=== PATIENT | male | born 1965 | race Caucasian/White ===

== ENCOUNTER 2019-06-04 21:20 | Emergency (ER) | payer MEDICAID ==
[~2019-06-04] VITALS: Ht 182.9 cm; Wt 59.0 kg
--- NOTE | 2019-06-04 21:24 | PHYS DOC ---
Past History Past Medical History: COPD Adult General Chief Complaint Chief Complaint: ".. The whole family been sick since .. they all got over it... I did't... I am so short of breath.. I quit smoking yesterday... " HPI HPI Patient is a 54 year old male who presents with above hx and complaints congestion, drainage, coughing, dyspnea, malaise, and arthralgia. Patient advised the entire family have had upper respiratory infections since however everyone else's well except him. Patient has continued to be short of breath and becomes dyspneic easily. Patient has been coughing and so short of breath he has not been able to smoke in the last 48 hours. Patient does have significant history of non-Hodgkin's lymphoma in 2006 underwent chemotherapy and radiation. Patient however did not do yearly follow-ups. Patient has had no recent travel. No history immunosuppression. No history of IV drug use. Patient does smoke tobacco and marijuana. Patient did not receive a flu vaccination this year. Pt. in past followed with Dr. Vicente, and also Dr. Mustafa. Review of Systems Review of Systems Constitutional: Complaints of fever or chills [] Eyes: Denies change in visual acuity, redness, or eye pain [] HENT: Complains of nasal congestion Respiratory: Complaints of cough and shortness of breath [] Cardiovascular: No additional information not addressed in HPI [] GI: Denies abdominal pain, nausea, vomiting, bloody stools or diarrhea [] : Denies dysuria or hematuria [] Musculoskeletal: Denies back pain or joint pain [] Integument: Denies rash or skin lesions [] Neurologic: Denies headache, focal weakness or sensory changes [] Endocrine: Denies polyuria or polydipsia [] All other systems were reviewed and found to be within normal limits, except as documented in this note. Family History Family History FAMILY members have had upper respiratory complaints since - most the family [place] members have recovered Current Medications Current Medications See nursing for home meds Allergies Allergies No known drug allergies Physical Exam Physical Exam Constitutional: in moderately acute distress, non-toxic appearance. [] HENT: Normocephalic, atraumatic, bilateral external ears normal, oropharynx moist, no oral exudates, nose swollen turbinates and clear rhinorrhea Eyes: PERRLA, EOMI, conjunctiva normal, no discharge. [] Neck: Normal range of motion, no tenderness, supple, no stridor. [] Cardiovascular:Heart rate regular rhythm, no murmur [] Lungs & Thorax: Bilateral breath sounds equal at apex with scattered wheezing throughout on auscultation . The patient []does have rhonchi in left lung mathews. Abdomen: Bowel sounds normal, soft, no tenderness, no masses, no pulsatile masses. [] Skin: Warm, dry, no erythema, no rash. [] Back: No tenderness, no CVA tenderness. [] Extremities: No tenderness, no cyanosis, no clubbing, ROM intact, no edema. [] No cording appreciated Neurologic: Alert and oriented X 3, normal motor function, normal sensory function, no focal deficits noted. [] Psychologic: Affect anxious, judgement normal, mood normal. [] EKG EKG My interpretation EKG shows a sinus rhythm at 82 bpm. No findings acute STEMI with contralateral changes.[] Radiology/Procedures Radiology/Procedures [[place] [address] IMAGING REPORT Signed PATIENT: ROGER WEBBER ACCOUNT: [id number] : 1965 LOCATION: ER AGE: 54 SEX: M EXAM STATUS: REG ER ORD. PHYSICIAN: BEA LOPEZ MD REASON: cough short of breath- hx Hodgkin's lymphoma, H/O SMOKING PROCEDURE: CHEST PA & LATERAL EXAM: PA and Lateral Views of the Chest DATE: 06/04/2019 9:29 PM INDICATION: Cough, shortness of breath, history of Hodgkin's lymphoma COMPARISON: No Prior FINDINGS: The heart is not enlarged. Mediastinal and hilar contours are stable. Linear/fibrotic changes in the left suprahilar lung. Left apical pleural/painful scarring/thickening. Emphysematous changes are seen. No pleural effusion or pneumothorax. IMPRESSION: Linear/fibrotic changes in the left suprahilar lung. Left apical pleural/painful scarring/thickening. Emphysematous changes are seen. No lobar consolidation. Electronically signed by: Carmelo Zavala MD (06/04/2019 10:52 PM) [facility] [place] DICTATED AND SIGNED BY: CARMELO ZAVALA MD DATE: 06/04/192251 CC: ELIESER VICENTE MD; BEA LOPEZ MD ~ ][place] [address] IMAGING REPORT Signed PATIENT: ROGER WEBBER ACCOUNT: [id number] : 1965 LOCATION: ER AGE: 54 SEX: M EXAM STATUS: REG ER ORD. PHYSICIAN: BEA LOPEZ MD REASON: dyspnea, COUGH, CONGESTION, NON HODGKINS LYMPHOMA, OMNI 350, 90ml PROCEDURE: CT ANGIOGRAPHY CHEST CT angiography chest with contrast PQRS statement: CT scans at this facility use dose reduction including either automated exposure control, iterative reconstructions, and /or weight based radiation dosing via mA and kV modification when appropriate to reduce radiation dose to as low as reasonably achievable. HISTORY: Dyspnea, cough, congestion for one week. Non-Hodgkin's lymphoma. TECHNIQUE: CT imaging of the chest with 3-D MIP reconstructions of the pulmonary arteries with 90 mL Omnipaque 300 intravenous contrast. FINDINGS: 1.3 cm left renal upper pole cyst density of 3 units. Heart size normal. Thoracic aorta and esophagus are unremarkable. No pulmonary artery emboli. Subcentimeter mediastinal and hilar lymph nodes no enlarged adenopathy by size criteria. Paraseptal and centrilobular pulmonary emphysema. Bronchial wall thickening may be bronchitis. Bullous changes at the left upper lobe. There is a thick walled cavitation at the lateral left upper lobe measuring 8 cm craniocaudal and 4 x 3 cm transaxial with areas of wall thickness of up to 1.3 cm. There are areas of nodularity peripheral of this cavitation measuring up to 1.5 cm on image 41. Along the inferior aspect of this cavitation there is a oblong 4 x 1 cm nodular density extending towards the pleura. No pleural effusions. Extensive areas of heterogeneous bony sclerosis throughout the thoracic spine and upper lumbar spine. Bony sclerosis right anterior first rib. IMPRESSION: 1. No pulmonary artery emboli. 2. Left upper lobe 8 x 4 x 3 cm thick walled cavitation with wall thickness of up to 1.3 cm, and numerous satellite nodules largest of which measures 4.1 cm. This raises concern for a cavitary lung malignancy with satellite lesions. 3. Pulmonary emphysema. 4. Bronchial wall thickening may be bronchitis. 5. Extensive areas of bony sclerosis throughout the thoracic and lumbar spine as well as the right first rib raising concern for osteoblastic metastatic disease. Osseous lymphoma would also be a consideration given history of non-Hodgkin's lymphoma. Electronically signed by: Caridad Godoy MD (06/04/2019 11:53 PM) [facility] DICTATED AND SIGNED BY: CARIDAD GODOY MD DATE: 06/04/19 2235 CC: ELIESER VICENTE MD; BEA LOPEZ MD ~ Course & Med Decision Making Course & Med Decision Making Pertinent Labs and Imaging studies reviewed. (See chart for details) Discussed presentation, testing and treatment plan with Dr. Jones , will transfer to [facility] under his care. Plan consults with Oncology and Pulmonary. Impression: 1. COPD / Emphysema exacerbation 2. Lt. Upper Lung Cavitation- Abscess vs Lung Malignancy 3. Hx. of Non-Hodgkins Lymphoma 3. Elevated Lactic Acid 2.3 4. Elevated D-dimer 12.38 5. Hx. Tobacco and Marijuana use. [] Dragon Disclaimer Dragon Disclaimer This electronic medical record was generated, in whole or in part, using a voice recognition dictation system. Departure Departure: Disposition: 01 HOME/RESIDENCE PRIOR TO ADM Condition: STABLE Dragon Disclaimer This chart was dictated in whole or in part using Voice Recognition software in a busy, high-work load, and often noisy Emergency Department environment. It may contain unintended and wholly unrecognized errors or omissions. BEA LOPEZ MD Jun 04, 2019 21:24
[2019-06-04] MEDS ORDERED: AZITHROMYCIN 250 MG TABLET. PO ONE (22:00)
[2019-06-04] MEDS ORDERED: methylPREDNISolone SOD SUCC PF 125 MG/2 ML VIAL. IV ONE (22:00)
[2019-06-04] MEDS ORDERED: IV RINGERS SOLUTION,LACTATED 1,000 ML IV SCH (22:00)
[2019-06-04] MEDS ORDERED: ASPIRIN 81 MG TAB.CHEW PO ONE (22:00)
[2019-06-04] MEDS ORDERED: IV NORMAL SALINE 50ML 50 ML ONE (22:03)
[2019-06-04] MEDS ORDERED: cefTRIAXone SODIUM 1 GM VIAL ONE (22:03)
[2019-06-04 22:09] LABS: BASO % 0 % (0-3); EOS # 0.1 x10^3/uL (0.0-0.7); EOS % 1 % (0-3); HEMATOCRIT 43.4 % (39.0-53.0); HEMOGLOBIN 14.2 g/dL (13.0-17.5); LYMPH # 2.7 x10^3/uL (1.0-4.8); LYMPH % 39 % (24-48); MEAN CORPUSCULAR HEMOGLOBIN 29 pg (25-35); MEAN CORPUSCULAR HGB CONC 33 g/dL (31-37); MEAN CORPUSCULAR VOLUME 88 fL (79-100); MONO # 0.7 x10^3/uL (0.0-1.1); MONO % 9 % (0-9); NEUT # 3.6 x10^3uL (1.8-7.7); NEUT % 51 % (31-73); PLATELET COUNT 291 x10^3/uL (140-400); RED BLOOD COUNT 4.92 x10^6/uL (4.30-5.70); RED CELL DISTRIBUTION WIDTH 13.9 % (11.5-14.5)
--- NOTE | 2019-06-04 22:25 | EKG ---
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
[2019-06-04 22:26] LABS: CALCIUM 8.7 mg/dL (8.5-10.1); CREATININE 0.7 mg/dL (0.7-1.3)
[2019-06-04] MEDS ORDERED: LORazepam 1 MG TABLET ONE (22:34)
[2019-06-04] MEDS ORDERED: DIVALPROEX SODIUM 125 MG TABLET.DR. PO ONE (22:34)
[2019-06-04 22:36] LABS: INFLUENZA A PATIENT NEGATIVE (NEGATIVE); INFLUENZA B PATIENT NEGATIVE (NEGATIVE)
[2019-06-04 22:37] LABS: ALBUMIN 3.3 g/dL (3.4-5.0); DIRECT BILIRUBIN 0.1 mg/dL (0.0-0.2); MAGNESIUM 1.9 mg/dL (1.8-2.4); TOTAL BILIRUBIN 0.3 mg/dL (0.2-1.0)
--- NOTE | 2019-06-04 22:54 | RAD ---
EXAM: PA and Lateral Views of the Chest DATE: 06/04/2019 9:29 PM INDICATION: Cough, shortness of breath, history of Hodgkin's lymphoma COMPARISON: No Prior FINDINGS: The heart is not enlarged. Mediastinal and hilar contours are stable. Linear/fibrotic changes in the left suprahilar lung. Left apical pleural/painful scarring/thickening. Emphysematous changes are seen. No pleural effusion or pneumothorax. IMPRESSION: Linear/fibrotic changes in the left suprahilar lung. Left apical pleural/painful scarring/thickening. Emphysematous changes are seen. No lobar consolidation. Electronically signed by: Carmelo Crocker MD (06/04/2019 10:52 PM) [facility]
[2019-06-04] MEDS ORDERED: CONTRAST GIVEN MC PRN (23:15)
[2019-06-04] MEDS ORDERED: IOHEXOL 350 MG/ML 100 ML VIAL. IV ONE (23:30)
--- NOTE | 2019-06-04 23:55 | RAD ---
CT angiography chest with contrast PQRS statement: CT scans at this facility use dose reduction including either automated exposure control, iterative reconstructions, and /or weight based radiation dosing via mA and kV modification when appropriate to reduce radiation dose to as low as reasonably achievable. HISTORY: Dyspnea, cough, congestion for one week. Non-Hodgkin's lymphoma. TECHNIQUE: CT imaging of the chest with 3-D MIP reconstructions of the pulmonary arteries with 90 mL Omnipaque 300 intravenous contrast. FINDINGS: 1.3 cm left renal upper pole cyst density of 3 units. Heart size normal. Thoracic aorta and esophagus are unremarkable. No pulmonary artery emboli. Subcentimeter mediastinal and hilar lymph nodes no enlarged adenopathy by size criteria. Paraseptal and centrilobular pulmonary emphysema. Bronchial wall thickening may be bronchitis. Bullous changes at the left upper lobe. There is a thick walled cavitation at the lateral left upper lobe measuring 8 cm craniocaudal and 4 x 3 cm transaxial with areas of wall thickness of up to 1.3 cm. There are areas of nodularity peripheral of this cavitation measuring up to 1.5 cm on image 41. Along the inferior aspect of this cavitation there is a oblong 4 x 1 cm nodular density extending towards the pleura. No pleural effusions. Extensive areas of heterogeneous bony sclerosis throughout the thoracic spine and upper lumbar spine. Bony sclerosis right anterior first rib. IMPRESSION: 1. No pulmonary artery emboli. 2. Left upper lobe 8 x 4 x 3 cm thick walled cavitation with wall thickness of up to 1.3 cm, and numerous satellite nodules largest of which measures 4.1 cm. This raises concern for a cavitary lung malignancy with satellite lesions. 3. Pulmonary emphysema. 4. Bronchial wall thickening may be bronchitis. 5. Extensive areas of bony sclerosis throughout the thoracic and lumbar spine as well as the right first rib raising concern for osteoblastic metastatic disease. Osseous lymphoma would also be a consideration given history of non-Hodgkin's lymphoma. Electronically signed by: Yimi Godoy MD (06/04/2019 11:53 PM) [facility]
[2019-06-04 23:59] LABS: AMPHETAMINE/METHAMPHETAMINE NEG (NEG); BARBITURATES NEG (NEG); BENZODIAZEPINES NEG (NEG); CANNABINOIDS POS (NEG); COCAINE NEG (NEG); METHADONE NEG (NEG); OPIATES NEG (NEG); PHENCYCLIDINE NEG (NEG)
[2019-06-05] LABS: BACTERIA,URINE 0 /HPF (0-FEW); BILIRUBIN,URINE NEG (NEG); CLARITY,URINE CLEAR; COLOR,URINE YELLOW; GLUCOSE,URINE NEG (NEG); NITRITE,URINE NEG (NEG); RBC,URINE 0 /HPF (0-2); SQUAMOUS EPITHELIAL CELL,UR OCC /LPF; UROBILINOGEN,URINE 0.2 mg/dL (0.2 mg/dL); WBC,URINE OCC /HPF (0-4)
[2019-06-05] MEDS ORDERED: ENOXAPARIN ** NOTE DOSE ** SYRINGE SQ ONE (00:15)
[2019-06-05] MEDS: IV RINGERS SOLUTION,LACTATED 1,000 ML IV ONE (01:30)
[2019-06-05 01:55] VITALS: BP 109/78
[2019-06-05] MEDS ORDERED: IV RINGERS SOLUTION,LACTATED 1,000 ML IV ONE ×2 (04:00)
== END 2019-06-05 02:20 | disposition short-term general hospital (02) ==
LOC: ER 21:20
DX: J44.9 Chronic obstructive pulmonary disease, unspecified (principal); A15.0 Tuberculosis of lung; R74.0 Nonspecific elevation of levels of transaminase and lactic acid dehydrogenase [LDH]; R79.1 Abnormal coagulation profile; F14.10 Cocaine abuse, uncomplicated; Z72.0 Tobacco use; Z85.72 Personal history of non-Hodgkin lymphomas
CPT/HCPCS: 36415; 71046; 71275; 80048; 80076; 80307; 81001; 82550; 83605; 83690; 83735; 83880; 84443; 84484; 85025; 85379; 85610; 85730; 87040; 87804; 93005; 94640; 96365; 96372; 96375; 99285; J0456; J0696; J1650; J2930; J7120; Q9967